=== PATIENT | female | born 1965 | race American Indian/Alaskan Native ===

== ENCOUNTER 2016-12-09 06:16 | Emergency (ER) | payer OTHER ==
[2016-12-09 08:26] LABS: Basophils % (Auto) 0.6 % (0.0-1.8); Eosinophils % (Auto) 0.6 % (0.0-4.3); Hematocrit 37.8 % (30.3-42.9); Hemoglobin 12.2 gm/dl (10.1-14.3); Mean Corpuscular HGB Conc 32 % (30-34); Mean Corpuscular Volume 70 fl (79-97); Platelet Count 254 K/mm3 (140-440); Red Blood Count 5.39 M/mm3 (3.65-5.03); Red Cell Distribution Width 17.7 % (13.2-15.2); White Blood Count 7.8 K/mm3 (4.5-11.0)
[2016-12-09 08:27] LABS: Bilirubin,Urine NEG (Negative); Blood,Urine LG (Negative); Ketones,Urine NEG (Negative); Leukocyte Esterase,Urine NEG (Negative); Mucus,Urine FEW /HPF; Nitrite,Urine NEG (Negative); Urobilinogen,Urine < 2.0 mg/dL (<2.0)
[2016-12-09 08:27] LABS: Mean Corpuscular Hemoglobin 23 pg (28-32)
[2016-12-09 08:44] LABS: Anion Gap 18 mmol/L; Blood Urea Nitrogen 10 mg/dL (7-17); Calcium 8.4 mg/dL (8.4-10.2); Carbon Dioxide 23 mmol/L (22-30); Chloride 101.6 mmol/L (98-107); Glucose 176 mg/dL (65-100); Potassium 4.1 mmol/L (3.6-5.0); Sodium 138 mmol/L (137-145)
[2016-12-09] MEDS ORDERED: TORADOL IM ONE (12:17)
[2016-12-09] MEDS ORDERED: NORCO 10/325 PO ONE (12:17)
--- NOTE | 2016-12-09 12:24 | Emergency Department Report ---
ED Female HPI - General Chief complaint: Abdominal Pain Stated complaint: BACK PAIN/STOMACH PAIN/VOMITING/FREQUENT URINATION Time Seen by Provider: 12/09/16 11:59 Source: patient Mode of arrival: Ambulatory Limitations: No Limitations - History of Present Illness Initial comments: 51 yo female c/o no menses since August (2 months), then started to have vag bleeding x 4 days with cramps and back pain. Pt having hot flashes and postmenopausal sx. + fatigue 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 Complaint: vaginal bleeding, pelvic pain -: days(s) (4) Location: suprapubic Radiation: other (back) Severity scale (0 -10): 8 Quality: cramping Consistency: intermittent Improves with: none (no change with motrin 800) Worsens with: other (palpation) Are you Now?: No Associated Symptoms: vaginal bleeding (8-10 pads per day (2 at a time)), other ( urinary frequency) - Related Data Home Medications Medication Instructions Recorded Confirmed Last Taken Lisinopril 40 mg PO DAILY 12/09/16 12/09/16 12/08/16 amLODIPine [Norvasc] 5 mg PO DAILY 12/09/16 12/09/16 Unknown glipiZIDE [glipiZIDE ER] 5 mg PO DAILY 12/09/16 12/09/16 Unknown metFORMIN [Glucophage] 500 mg PO BID 12/09/16 12/09/16 Unknown Previous Rx's Medication Instructions Recorded Last Taken Type HYDROcodone/APAP 5-325 [[place] 1 each PO Q6HR PRN #20 tablet 12/09/16 Unknown Rx 5/325] Ibuprofen [Motrin] 800 mg PO Q8HR PRN #30 tablet 12/09/16 Unknown Rx Allergies Allergy/AdvReac Type Severity Reaction Status Date / Time No Known Allergies Allergy Unverified 03/28/16 08:49 ED Review of Systems ROS: Stated complaint: BACK PAIN/STOMACH PAIN/VOMITING/FREQUENT URINATION Other details as noted in HPI Comment: All other systems reviewed and negative Constitutional: denies: chills, fever Respiratory: denies: shortness of breath, SOB with exertion, SOB at rest Cardiovascular: denies: chest pain, palpitations, dyspnea on exertion Gastrointestinal: denies: abdominal pain, nausea, vomiting, diarrhea Musculoskeletal: as per HPI Skin: as per HPI Neurological: denies: headache Psychiatric: as per HPI ED Past Medical Hx - Past Medical History Hx Hypertension: Yes Hx Diabetes: Yes (oral) Hx GERD: Yes Additional medical history: hx of fibroids, scoliosis (prostethic support), ovarian cysts - Surgical History Hx Breast Surgery: Yes (reduction) Additional Surgical History: naeem in spinal support, C secetion x 2, tubal ligation - Social History Smoking Status: Never Smoker Substance Use Type: Alcohol - Medications Home Medications: Home Medications Medication Instructions Recorded Confirmed Last Taken Type HYDROcodone/APAP 5-325 [[place] 1 each PO Q6HR PRN #20 tablet 12/09/16 Unknown Rx 5/325] Ibuprofen [Motrin] 800 mg PO Q8HR PRN #30 tablet 12/09/16 Unknown Rx Lisinopril 40 mg PO DAILY 12/09/16 12/09/16 12/08/16 History amLODIPine [Norvasc] 5 mg PO DAILY 12/09/16 12/09/16 Unknown History glipiZIDE [glipiZIDE ER] 5 mg PO DAILY 12/09/16 12/09/16 Unknown History metFORMIN [Glucophage] 500 mg PO BID 12/09/16 12/09/16 Unknown History ED Physical Exam - General Limitations: No Limitations General appearance: alert - Head Head exam: Present: atraumatic - Eye Eye exam: Present: normal appearance - ENT ENT exam: Present: normal exam - Neck Neck exam: Present: normal inspection, full ROM. Absent: meningismus - Respiratory Respiratory exam: Present: normal lung sounds bilaterally. Absent: respiratory distress, wheezes, rales - Cardiovascular Cardiovascular Exam: Present: regular rate, normal rhythm - GI/Abdominal GI/Abdominal exam: Present: soft, tenderness (suprapubic), normal bowel sounds. Absent: distended, guarding, rebound - Extremities Exam Extremities exam: Present: normal inspection, full ROM. Absent: tenderness - Back Exam Back exam: Present: normal inspection, full ROM - Neurological Exam Neurological exam: Present: alert, altered, oriented X3. Absent: motor sensory deficit - Psychiatric Psychiatric exam: Present: normal affect, normal mood - Skin Skin exam: Present: warm, dry, intact ED Course Vital Signs 12/09/16 12/09/16 12/09/16 07:20 11:45 12:59 Temperature 99.0 F 98.1 F Pulse Rate 75 80 Respiratory 14 16 16 Rate Blood Pressure 173/86 Blood Pressure 154/83 [Left] O2 Sat by Pulse 98 100 Oximetry - Reevaluation(s) Reevaluation #1: 12/09/16 12:37 norco/toradol ordered for pain ED Medical Decision Making - Lab Data Result diagrams: 12/09/16 08:16 12/09/16 08:16 Lab Results 12/09/16 12/09/16 12/09/16 Range/Units 07:46 07:50 08:15 WBC (4.5-11.0) K/mm3 RBC (3.65-5.03) M/mm3 Hgb (10.1-14.3) gm/dl Hct (30.3-42.9) % MCV (79-97) fl MCH (28-32) pg MCHC (30-34) % RDW (13.2-15.2) % Plt Count (140-440) K/mm3 Lymph % (Auto) (13.4-35.0) % [place] % (Auto) (0.0-7.3) % Eos % (Auto) (0.0-4.3) % Baso % (Auto) (0.0-1.8) % Lymph # (1.2-5.4) K/mm3 [place] # (0.0-0.8) K/mm3 Eos # (0.0-0.4) K/mm3 Baso # (0.0-0.1) K/mm3 Seg Neutrophils % (40.0-70.0) % Seg Neutrophils # (1.8-7.7) K/mm3 Sodium (137-145) mmol/L Potassium (3.6-5.0) mmol/L Chloride (98-107) mmol/L Carbon Dioxide (22-30) mmol/L Anion Gap mmol/L BUN (7-17) mg/dL Creatinine (0.7-1.2) mg/dL Estimated GFR ml/min BUN/Creatinine Ratio % Glucose (65-100) mg/dL POC Glucose 175 H (70-105) Calcium (8.4-10.2) mg/dL Amylase 51 (27-131) units/L Lipase (13-60) units/L Urine Color Yellow (Yellow) Urine Turbidity Clear (Clear) Urine pH 5.0 (5.0-7.0) Ur Specific [place] 1.018 (1.003-1.030) Urine Protein 30 mg/dl (Negative) mg/dL Urine Glucose (UA) Neg (Negative) mg/dL Urine Ketones Neg (Negative) mg/dL Urine Blood Lg (Negative) Urine Nitrite Neg (Negative) Ur Reducing Substances Not Reportable Urine Bilirubin Neg (Negative) Urine Ictotest Not Reportable Urine Urobilinogen < 2.0 (<2.0) mg/dL Ur Leukocyte Esterase Neg (Negative) Urine WBC (Auto) 2.0 (0.0-6.0) /HPF Urine RBC (Auto) 83.0 (0.0-6.0) /HPF U Epithel Cells (Auto) 3.0 (0-13.0) /HPF Urine Mucus Few /HPF Urine HCG, Qual Negative (Negative) 12/09/16 12/09/16 12/09/16 Range/Units 08:16 08:16 08:16 WBC 7.8 (4.5-11.0) K/mm3 RBC 5.39 H (3.65-5.03) M/mm3 Hgb 12.2 (10.1-14.3) gm/dl Hct 37.8 (30.3-42.9) % MCV 70 L (79-97) fl MCH 23 L (28-32) pg MCHC 32 (30-34) % RDW 17.7 H (13.2-15.2) % Plt Count 254 (140-440) K/mm3 Lymph % (Auto) 17.4 (13.4-35.0) % [place] % (Auto) 5.0 (0.0-7.3) % Eos % (Auto) 0.6 (0.0-4.3) % Baso % (Auto) 0.6 (0.0-1.8) % Lymph # 1.4 (1.2-5.4) K/mm3 [place] # 0.4 (0.0-0.8) K/mm3 Eos # 0.0 (0.0-0.4) K/mm3 Baso # 0.0 (0.0-0.1) K/mm3 Seg Neutrophils % 76.4 H (40.0-70.0) % Seg Neutrophils # 6.0 (1.8-7.7) K/mm3 Sodium 138 (137-145) mmol/L Potassium 4.1 (3.6-5.0) mmol/L Chloride 101.6 (98-107) mmol/L Carbon Dioxide 23 (22-30) mmol/L Anion Gap 18 mmol/L BUN 10 (7-17) mg/dL Creatinine 0.5 L (0.7-1.2) mg/dL Estimated GFR > 60 ml/min BUN/Creatinine Ratio 20.00 % Glucose 176 H (65-100) mg/dL POC Glucose (70-105) Calcium 8.4 (8.4-10.2) mg/dL Amylase (27-131) units/L Lipase 20 (13-60) units/L Urine Color (Yellow) Urine Turbidity (Clear) Urine pH (5.0-7.0) Ur Specific [place] (1.003-1.030) Urine Protein (Negative) mg/dL Urine Glucose (UA) (Negative) mg/dL Urine Ketones (Negative) mg/dL Urine Blood (Negative) Urine Nitrite (Negative) Ur Reducing Substances Urine Bilirubin (Negative) Urine Ictotest Urine Urobilinogen (<2.0) mg/dL Ur Leukocyte Esterase (Negative) Urine WBC (Auto) (0.0-6.0) /HPF Urine RBC (Auto) (0.0-6.0) /HPF U Epithel Cells (Auto) (0-13.0) /HPF Urine Mucus /HPF Urine HCG, Qual (Negative) - Radiology Data Radiology results: report reviewed Transvaginal/pelvic ultrasound: A small uterine fibroid in the posterior wall. Possible endometrial polyp. 1.6 cm simple left ovarian cyst - Medical Decision Making Pain improved after medications. Patient discharged [employer] C[employer]TING [employer]PER[employer]OR follow-up and medication for symptom pain relief. Patient does not require blood transfusion at this time. - Differential Diagnosis fibroids, perimenopausal bleeding, uterine cancer, anemia, fibroids Critical Care Time: No Critical care attestation.: If time is entered above; I have spent that time in minutes in the direct care of this critically ill patient, excluding procedure time. ED Disposition Clinical Impression: Dysmenorrhea, Amaya-menopausal, Uterine fibroid, Ovarian cyst Disposition: TO HOME OR SELFCARE Is pt being admited?: No Does the pt Need Aspirin: No Condition: Stable Instructions: Dysmenorrhea (ED), Ovarian Cyst (ED), Uterine Fibroids (ED) Additional Instructions: Take the medication as prescribed and as needed for pain. 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 Take the copy of your ultrasound results to your follow up visit. Return if symptoms worsen. Prescriptions: HYDROcodone/APAP 5-325 [[place] 5/325] 1 each PO Q6HR PRN #20 tablet PRN Reason: Pain Ibuprofen [Motrin] 800 mg PO Q8HR PRN #30 tablet PRN Reason: Pain Referrals: YG WANG MD [Primary Care Provider] - 3-5 Days MARIANNE HERNANDEZ MD [Staff Physician] - 3-5 Days Time of Disposition: 14:33
[2016-12-09 13:00] VITALS: BP 154/83
--- NOTE | 2016-12-09 14:17 | Ultrasound Report ---
ULTRASOUND PELVIC COMPLETE ULTRASOUND TRANSVAGINAL HISTORY: Heavy vaginal bleeding, pelvic pain. TECHNIQUE: Transabdominal and transvaginal ultrasound with color and spectral doppler interrogation. The uterus is retroverted. The uterus measures 8.4 x 5.2 x 7.1 cm. A 1.4 x 2.4 x 1.3 cm intramural fibroid is identified in the posterior wall. There is a small amount of endometrial fluid. There is a echogenic polypoid type lesion within the endometrial canal measuring 1.4 x 1.2 cm. This probably represents an endometrial polyp. The endometrial stripe is within normal limits otherwise measuring less than 1 cm. The right ovary is unremarkable measuring 2.3 x 1.4 x 2.4 cm. The left ovary measures 3.3 x 1.8 x 3.3 cm and contains a simple 1.6 cm cyst. No pelvic fluid collection. IMPRESSION: Small uterine fibroid in the posterior wall. Possible endometrial polyp. 1.6 in meters simple left ovarian cyst.
== END 2016-12-09 15:23 | disposition home or self-care (01) ==
LOC: ED 06:16
DX: N94.6 Dysmenorrhea, unspecified (principal); N83.209 Unspecified ovarian cyst, unspecified side; D25.9 Leiomyoma of uterus, unspecified; Z78.0 Asymptomatic menopausal state; I10 Essential (primary) hypertension; E11.9 Type 2 diabetes mellitus without complications; K21.9 Gastro-esophageal reflux disease without esophagitis; Z98.51 Tubal ligation status
CPT/HCPCS: 36415; 76830; 76856; 80048; 81001; 81025; 82150; 82962; 83690; 85025; 96372; 99284; J1885

== ENCOUNTER 2018-02-09 15:13 | Outpatient (CLI) | payer OTHER ==
--- NOTE | 2018-02-10 10:13 | Mammography Report ---
BILATERAL DIGITAL SCREENING MAMMOGRAM with CAD: 02/09/18 CLINICAL: Routine screening. COMPARISON:None available. However, a prior mammogram was apparently done at [facility]. FINDINGS: The breasts are mostly fatty with bilateral scattered fibroglandular densities. Right outer asymmetries and an oval 3.5 cm left upper inner mass require comparison with a prior mammogram. Scattered bilateral calcifications appear to be largely dermal and benign.No architectural distortion or suspicious calcifications. IMPRESSION: Left breast mass and right asymmetries requiring further evaluation. BI-RADS CATEGORY: 0 -- Additional Evaluation Required RECOMMENDATION: Comparison with a previous mammogram. We will attempt to obtain a prior mammogram for comparison. If we do not obtain a prior mammogram within 30 days, a revised report will be issued recommending a recall for additional imaging. Please be advised that the patient should not schedule an appointment for return until adequate time (at least 2 weeks) has passed for us to obtain the prior mammogram. ACR BI-RADS MAMMOGRAPHIC CODES: 0 = Needs additional imaging evaluation; 1 = Negative; 2 = Benign; 3 = Probably benign; 4 = Suspicious; 5 = Malignant; 6 = Known biopsy-proven malignancy COMMENT: 1. Dense breast tissue, i.e., adenosis, fibrocystic changes, etc., may obscure an underlying neoplasm. 2. Approximately 10% of cancers are not detected with mammography. 3. A negative mammography report should not delay biopsy if a clinically suspicious mass is present. COMMENT: Patient follow-up letters are generated via our [employer] application.
== END 2018-02-09 15:14 | disposition home or self-care (01) ==
LOC: SPVWC 15:13
PROVIDERS: ATTEND General Practice
DX: Z12.31 Encounter for screening mammogram for malignant neoplasm of breast (principal); I10 Essential (primary) hypertension; K21.9 Gastro-esophageal reflux disease without esophagitis
CPT/HCPCS: 77067